=== PATIENT | female | born 2000 | race Caucasian/White ===

== ENCOUNTER 2020-01-25 14:29 | Emergency (ER) | payer BC, SELFPAY ==
[2020-01-25 14:26] VITALS: BP 132/83; PULSE 113; RESP 14; TEMP 37; O2SAT 97
[2020-01-25 14:53] LABS: Bilirubin Negative (Negative); Blood Moderate (Negative); Clarity Cloudy (Clear); Glucose Negative (Negative); Ketones Negative (Negative); Leukocyte Esterase Trace (Negative); Nitrite Negative (Negative); Specific Gravity >= 1.030 (1.005-1.025); Urobilinogen 0.2 EU/dL (Up TO 0.2)
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
[2020-01-25] MEDS: Cyclobenzaprine 10 MG TAB PO (15:00)
[2020-01-25] MEDS: Ibuprofen 600 MG TAB PO (15:00)
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
[2020-01-25 15:04] LABS: C & S Indicated? No/Sq. Contamination; Epithelial Cells Many HPF (Negative)
[2020-01-25 15:36] LABS: Abs Immature Grans 0.06 k/cumm (0.0-0.09); Absolute Eosinophil Count 0.08 k/cumm (0.0-0.7); Absolute Monocyte Count 0.74 k/cumm (0.11-0.7); Absolute Neutrophil Count 10.86 k/cumm (1.2-6.7); Basophils % 0.2; Eosinophils % 0.6; Immature Grans % 0.5 %; Lymphocytes % 10.8; Mean Corp. HGB Concentration 30.6 g/dL (32.0-36.0); Mean Corpuscular Hemoglobin 22.3 pg (27.0-33.0); Mean Corpuscular Volume 72.9 fL (80-95); Monocytes % 5.6; Neutrophils % 82.3; Platelet Count 529 x1000/uL (130-400); RBC 4.94 m/cumm (4.00-5.20); RBC Distribution Width 18.3 % (11.7-14.6); White Blood Cell Count 13.19 k/cumm (4.4-10.8)
[2020-01-25 15:45] LABS: Absolute Basophil Count 0.03 k/cumm (0.0-0.2); Absolute Lymphocyte Count 1.42 k/cumm (1.2-3.4)
[2020-01-25 15:47] LABS: ALT 29 U/L (14-59); AST 20 U/L (15-37); Albumin 4.1 g/dL (3.4-5.0); Alkaline Phosphatase 97 U/L (46-116); Anion Gap 10.4 mmol/L (3-11); BUN 13 mg/dL (7-18); Bilirubin, Total 0.2 mg/dL (0.2-1.0); CO2 23.6 mmol/L (21.0-32.0); CREATININE 0.94 mg/dL (0.55-1.02); Calcium 9.2 mg/dL (8.5-10.1); Chloride 103 mmol/L (98-107); Glucose 99 mg/dL (74-106); Lipase 147 U/L (73-393); Potassium 3.7 mmol/L (3.5-5.1); Sodium 137 mmol/L (136-145); Total Protein 8.1 g/dL (6.4-8.2)
[2020-01-25] MEDS: Omnipaque 350 MG/ML 100 ML BTL IJ (15:48)
[2020-01-25 16:07] LABS: Diff Comment RBC Morph Reviewed
[2020-01-25 16:08] LABS: Microcytosis 2+
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
[2020-01-25 16:12] VITALS: BP 125/65; PULSE 106; RESP 18; TEMP 37.1; O2SAT 100
[2020-01-25 16:20] VITALS: BP 132/83; PULSE 106; RESP 18; TEMP 37.1; O2SAT 100
== END 2020-01-25 16:25 | disposition home or self-care (01) ==
LOC: ER 16:35
PROVIDERS: Emergency Provider Registered Nurse Emergency; PCP Pediatrics
DX: R10.10 Upper abdominal pain, unspecified (principal); S30.811A Abrasion of abdominal wall, initial encounter; S60.052A Contusion of left little finger without damage to nail, initial encounter; V47.6XXA Car passenger injured in collision with fixed or stationary object in traffic accident, initial encounter
CPT/HCPCS: 36415; 80053; 81025; 83690; 99285; 74177; 81003; 81015; 85025; 99284; J3490

== ENCOUNTER 2020-11-01 15:31 | Outpatient (REF) | payer BC, SELFPAY ==
--- NOTE | 2020-11-01 10:15 | PAPFT_PTH ---
PATIENT: Belinda Mao V LOC: [facility]#:[id number] AGE/SX: 20/F ROOM: RE11/01/[address]: Vannessa Hernandez : 2000 BED: DIS: 11/01/2020 SPEC #: [id number] RECD: 11/01/20 17:02 STATUS: DOM REYesica #: [id number] KEIRA: 11/01/20 10:[address]: Vannessa Hernandez DEPT: [facility] Cytology RECD BY: Lavinia Barton ENTERED: 11/01/20 17:02 SP TYPE: PAPFT OTHR DR: Layla Celaya APRN Tissues: 1 - CX/ENDOCX FOR PAP SMEARS Procedures: PAP THIN PREP/UVM Screening Comments: [id number] (CHLAMYDIA/GC)
[2020-11-05 21:02] LABS: Chlamydia Result Negative (Negative); GC Result Negative (Negative)
== END 2020-11-01 15:32 | disposition home or self-care (01) ==
LOC: NCHCN 15:31
PROVIDERS: Visit Provider Nurse Practitioner Family
DX: R10.2 Pelvic and perineal pain (principal); Z00.00 Encounter for general adult medical examination without abnormal findings; Z12.4 Encounter for screening for malignant neoplasm of cervix; Z11.3 Encounter for screening for infections with a predominantly sexual mode of transmission
CPT/HCPCS: 87491; 87591; 88142; 87480; 87510; 87660

== ENCOUNTER 2020-11-02 13:55 | Emergency (ER) | payer BC, SELFPAY ==
[2020-11-02 14:17] VITALS: BP 116/73; PULSE 96; RESP 16; TEMP 37.3; O2SAT 98
--- NOTE | 2020-11-02 14:21 | W.ED.GENAD ---
Discharge Plan Disposition Patient Disposition: HOME Condition: Stable Discharge Details Clinical Impression: Anxiety and depression Primary Care Provider: Layla Celaya ED Provider: Agustín Flores Home Meds and New Rx's Prescriptions: Continued sertraline 50 mg tablet 50 mg PO DAILY Qty: 30 RF: 1 Discharge Instructions Instructions: Anxiety (ED), Depression (ED) Additional Instructions: Please follow the instructions given to you by the mental health team. It sounds as though you will check in with them this evening and again tomorrow on Thursday. You are already scheduled to be seen by your primary care provider on Thursday, please follow-up as scheduled. Please watch for new or worsening symptoms and return to the ER for any concerns. Medical Decision Making This is a 20-year-old female, past medical history of anxiety and depression, placed on Zoloft 3 weeks ago. Today at work she was having intrusive thoughts about how she could cut herself at work; however, she denies any suicidal or homicidal ideations and does not want to act upon these intrusive thoughts. She has a community therapist, lives at home with her parents over the past few weeks for additional support, and is scheduled to be seen by her primary care provider on Thursday. Clinically she has no medical concerns or complaints. She appears well, nontoxic. We will initiate a CPSO. At this time I will not obtain laboratory values reflexively and will await mental health to evaluate the patient determine if they feel as though she can be safely discharged home to the care of her parents or if she will require any hospitalization. I was able to speak with Rock from [facility] and the [facility] services, he was set up a Zoom call to evaluate the patient. Rock evaluated the patient, please see his note. After the evaluation I was able to speak with Rock personally. At this time the patient does not meet inpatient involuntary criteria. Patient has forward thinking, strong resources at home, and follow-up with her primary care provider on Thursday. She is not actively suicidal or homicidal and does not want to act upon any of her intrusive thoughts. She feels safe being discharged home. She will return to the ER for new or worsening symptoms. Medical Records Medical records reviewed: Yes I reviewed the patient's medical records. HPI General Mode of arrival: ambulatory. Date/Time Provider Initiated Documentation: 11/02/20 13:59. Limitations to Documentation: no limitations. Information obtained by: patient. HPI Narrative: Is a 20-year-old female who reports a history of anxiety and depression presenting to the ER today for intrusive thoughts. She states that she has struggled with anxiety and depression for several years, has had intrusive thoughts in the past, has scratched her arm with a screw before but never tried any other avenues of harming herself. She denies any suicidal or homicidal thoughts. She tells me that she decided to finally establish a primary care provider, is followed by Dr. Celaya now. She was initiated on sertraline just a few weeks ago and has been titrating her dose up. She states that she has been doing well however today she was having intrusive thoughts. She works at a [employer] and being around the sharp object she felt as though her thoughts were focused on cutting herself or that she could cut herself if she wanted to. She states that she does not want to, again denies any suicidal or homicidal ideations. She denies any medical concerns or complaints. She denies headache, fever, chest pain, shortness of breath abdominal pain nausea, vomiting, change in bowel bladder function, numbness, tingling, weakness, skin rash. Patient does have an outpatient therapist who she talks with every Thursday. She has been living with her parents for the past couple of weeks which she reports are good resources for her. Related Data Home Medications Medication Instructions Recorded Confirmed sertraline 50 mg tablet 50 mg PO DAILY #30 tab 10/16/20 11/02/20 Previous Rx's Medication Instructions Recorded sertraline 50 mg tablet 50 mg PO DAILY #30 tab 10/16/20 Allergies Allergy/AdvReac Type Severity Reaction Status Date / Time No Known Allergies Allergy Verified 10/16/20 10:04 General Stated Complaint: PsychEval JAREN: 2 Review of Systems Constitutional Constitutional: Denies fatigue, Denies fever(s), Denies headache(s) and Denies weakness ENT Ears, Nose, Mouth, and Throat: Denies headache(s) Cardiovascular Cardiovascular: Denies chest pain and Denies dyspnea Respiratory Respiratory: Denies dyspnea Gastrointestinal Gastrointestinal: Denies abdominal pain, Denies nausea and Denies vomiting Musculoskeletal Musculoskeletal: Denies back pain and Denies tingling Integumentary/Breasts Skin/Breast: Denies rash Neurologic Neurologic: Denies headache(s), Denies tingling and Denies weakness Psychiatric Psychiatric: Reports anxiety, Reports depression, Denies homicidal ideation and Denies suicidal ideation Endocrine Endocrine: Denies fatigue [facility] Medical History Anxiety and depression Fracture, femur L, 2013 Family History Mother No problems noted. Brother Seizures Social History Smoking/Tobacco Use Status: Never Second Hand Exposure: Yes Smoking risk assessment performed?: Yes Alcohol Intake: current Alcohol Intake frequency: holidays/special occasions only Alcohol type: beer Drug use: Never Substance use type: does not use Counseling given: No Caregiver/Support person: No Household members: friend(s) Housing: house Do you need help understanding health information?: Often Pets and animals: Yes Pets and animals: cat(s), dog(s) and ferret(s) Sexually active: Yes Do you think of yourself as: bisexual Current gender identity: female What is your relationship status?: living with partner How often do you talk on the phone with friends or family?: three or more times per week How often do you get together with friends or relatives?: decline to answer How often do you attend yarsanism or confucianism services?: decline to answer Do you belong to any clubs or organized social groups?: no Panel score (0-1 are the most socially isolated patients): 2 Dora/Episcopal: No preference Special dora needs: No Seatbelt use: always Helmet use: Yes Helmet use: always Drive intox 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 Do you feel safe at home: Yes Do you feel safe in your relationship?: Yes Exam Const General: cooperative, healthy appearing, comfortable and no acute distress Orientation: alert, awake and oriented x3 HENMT Head: normal to inspection, normocephalic and atraumatic Eyes General: appearance normal, both eyes and all related structures Conjunctivae: conjunctivae normal Sclera: sclerae normal Neck Neck: normal visual inspection, full ROM, trachea midline and supple Resp Effort & Inspection: normal respiratory effort and able to speak in complete sentences Auscultation: clear to auscultation bilaterally Cardio Rate: regular rate Rhythm: regular rhythm GI Palpation: soft and nontender Skin General skin exam: no rashes or lesions noted Neuro General: patient alert, patient awake, patient oriented x3, moves all extremities and no focal motor deficits Cognition: normal cognition Speech: speech normal Gait: normal gait Motor: muscle tone normal throughout Sensory Exam: no sensory deficits noted Extrem General: normal to inspection and full ROM Psych Appearance: grossly normal Mental Status: mental status grossly normal Speech and Movement: speech and movement normal Mood: congruent mood Affect: normal affect Attitude: cooperative Thought Process: normal Thought Content: normal Insight: insight good Judgment: judgment good Course Vital Signs Vital signs: Vital Signs Temperature 37.3 C 11/02/20 14:17 Pulse 96 H 11/02/20 14:17 Respiratory Rate 16 11/02/20 14:17 Blood Pressure 116/73 11/02/20 14:17 Pulse Oximetry 98 11/02/20 14:17 Temperature 37.3 C 11/02/20 14:17 Temperature Source Skin 11/02/20 14:17 Pulse 96 H 11/02/20 14:17 Respiratory Rate 16 11/02/20 14:17 Respiratory Effort 11/02/20 14:20 Blood Pressure 116/73 11/02/20 14:17 Blood Pressure Position Sitting 11/02/20 14:17 Pulse Oximetry 98 11/02/20 14:17 Oxygen Delivery Method Room Air 11/02/20 14:17 Oxygen Flow Rate 0 11/02/20 14:17 Pain Level 3 11/02/20 14:17 Comment 11/02/20 14:17
--- NOTE | 2020-11-02 14:46 | PDOC.CMSAFED ---
- If Service Date Differs Date of service: 11/02/20 Time of Service: 14:46 Care Management Safety Plan Status: Voluntary Disposition: Belinda is assessed by Rock [facility] Crisis Screener. Belinda is returning home as she was able to contract for safety with [facility]. She will check in by telephone with [facility] over the weekend and will follow up with her PCP on Thursday at 9:00 am as scheduled. Belinda knows she can return to [facility] if her symptoms worsen. Chief Complaint: Belinda is a 20-year-old female who presents in the ED due to thoughts of engaging in self-harming behaviors. She, however, is currently denying suicidal ideation to nursing staff. M will respond to ED to assess patient after patient has been medically cleared and assessed by screener. If screener deems patient meets criteria for psychiatric stabilization CM will facilitate interdepartmental huddle with [facility] screener for safety planning considerations and meet with patient to review [facility] policy and safety plan, establish individual wishes for treatment and maintain patient rights. In the interim; please note safety plan below to guide patient care while awaiting further assessment in the ED. SAFETY PLAN: 1. Will remain on suicide precautions and in own clothes. 2. Will remain in room under direct supervision of one-on-one staff at all times provided by CPSO, K[employer], [employer] TUR[employer]INE PERFORMANCE ENGINEER waterfront director. 3. May have paper cups, plates, finger foods as well as a cardboard spoon with which to eat meals. 4. Follow [facility] Management of the Admitted Behavioral Health Patient policy. 5. Comfort bath system only. 6. No personal belongings 7. No visitors per [facility] Covid policy. 8. Phone: May have cell phone at nursing discretion. 9. Due to VOLUNTARY status, if patient wishes to leave [facility], staff will contact [facility] Crisis Screener ([phone]) and On-Call Waxing Machine Operator Helper ([phone]) as soon as possible. In the event of elopement, notify [place] Police ([phone]). If deemed appropriate for inpatient psychiatric care, safety plan will be established with patient, and care team, to adhere to patient goals, identify restrictions based on behavioral status, address nutrition, and determine allowed personal belongings, tools for hygiene and personal care. As well plan will determine level of activity including ambulation, level of supervision, visitors, and determine privileges based on level of acuity, behaviors and level of engagement by patient.
[2020-11-02 16:03] VITALS: BP 115/78; PULSE 93; RESP 18; TEMP 37.2; O2SAT 98
== END 2020-11-02 16:04 | disposition home or self-care (01) ==
PROVIDERS: Emergency Provider Physician Assistant
DX: F41.9 Anxiety disorder, unspecified (principal); F32.9 Major depressive disorder, single episode, unspecified
CPT/HCPCS: 99283

== ENCOUNTER 2023-11-24 19:11 | Outpatient (REF) | payer BC, SELFPAY ==
--- NOTE | 2023-11-24 17:30 | PAPFT_PTH ---
PATIENT: Belinda Mao V LOC: [facility] U#:[id number] AGE/SX: 23/F ROOM: RE11/24/[address]: Cassius Sterling DNP : 2000 BED: DIS: 11/24/2023 SPEC #: [id number] RECD: 11/25/23 12:48 STATUS: DOM REYesica #: [id number] KEIRA: 11/24/23 17:[address]: Cassius Severino DEPT: [facility] Cytology RECD BY: Lavinia Barton Tissues: 1 - CX/ENDOCX FOR PAP SMEARS Procedures: PAP THIN PREP/UVM Screening HPV DNA PROBE Comments: [id number]
== END 2023-11-24 19:12 | disposition home or self-care (01) ==
LOC: LBN 19:11
PROVIDERS: PCP Nurse Practitioner Family; Visit Provider Nurse Practitioner Family
DX: Z12.4 Encounter for screening for malignant neoplasm of cervix (principal)
CPT/HCPCS: 88142; 87624